=== PATIENT | female | born 1950 | race Caucasian/White ===

== ENCOUNTER 2020-07-10 14:37 | Inpatient (IN) | payer MEDICARE, OTHER, SELFPAY ==
[2020-07-10] VITALS (7 sets, daily range): BP systolic 113–149; BP diastolic 54–69; PULSE 77–92; RESP 17–22; TEMP 37.6–37.7; O2SAT 91–93; BMI 37.5
--- NOTE | 2020-07-10 15:16 | ECG_ITS ---
Test Reason : SYNCOPE Blood Pressure : / mmHG Vent. Rate : 082 BPM Atrial Rate : 082 BPM P-R Int : 162 ms QRS Dur : 076 ms QT Int : 388 ms P-R-T Axes : 065 051 031 degrees QTc Int : 453 ms Normal sinus rhythm Nonspecific ST abnormality Abnormal ECG No previous ECGs available Referred By: Caty Escalante Electronically Signed By:TAHIRA CHRISTIAN MD
--- NOTE | 2020-07-10 15:16 | CT_ITS ---
EXAMINATION: CT CHEST, ABDOMEN AND PELVIS WITH IV CONTRAST CLINICAL INFORMATION: Syncope. Abdominal pain. Reduced appetite. COMPARISON: None TECHNIQUE: Axial images through the chest, abdomen and pelvis without IV or oral contrast. Sagittal and coronal reconstructions on the technologist workstation were performed. Patient dose 257+7 0 9 mg/cm. This CT examination was performed using dose optimization techniques as appropriate, variously including the following: *Automated exposure control *Adjustment of mA and/or kV according to patient size (this includes techniques or standardized protocols for targeted exams where dose is matched to indication/reason for exam; i.e. extremities or head) *Use of iterative reconstruction technique FINDINGS: Chest: There are scattered small areas of peripheral groundglass attenuation seen throughout the lungs. Appearance is nonspecific however. Covid infection should be considered. Largest areas measure approximately 1 cm. There is a 5 mm peripheral or subpleural left lower lobe nodule adjacent to the fissure axial image 248 series 7 probably representing a subpleural lymph node. There is shotty mediastinal lymphadenopathy. The heart does not appear enlarged. There is coronary artery and mitral annular calcification. There is no pericardial effusion. The thoracic aorta is normal in caliber. The visualized thyroid gland is unremarkable. There is no pleural effusion or pleural thickening. No chest wall mass or enlarged axillary lymph nodes are seen. Abdomen and pelvis: The liver is unremarkable. There is a gallstone in the gallbladder. There is no biliary duct dilatation. The spleen is unremarkable. The pancreas is unremarkable. The adrenal glands and kidneys are unremarkable. The bladder is unremarkable. There is mild diverticulosis of the colon. Small and large bowel is otherwise unremarkable. The appendix is not identified. The stomach is unremarkable. No hernia is seen. The uterus appears to have been removed. No pelvic mass is seen. There is no ascites or adenopathy. There is evidence of atherosclerotic disease. There are degenerative changes of the spine and hip joints. CT/CT abdomen pelvis wo con IMPRESSION: Chest: Nonspecific small peripheral infiltrates. Covid infection should be considered. Coronary artery calcification. Abdomen and pelvis: Mild diverticulosis of the colon. Gallstone. No CT evidence of cholecystitis.
--- NOTE | 2020-07-10 15:33 | ED.SYNCOPE ---
HPI - Syncope General Chief Complaint: Syncope Stated Complaint: syncope Time Seen by Provider: 07/10/20 15:03 History of Present Illness HPI narrative: A 70-year-old female with a past medical history of SD 20 years ago, high cholesterol, angina and HTN who presents with a syncopal episode just prior to arrival while waiting for a COVID test. She states for the past week or two she has not been feeling herself. She has said diarrhea, on and off fevers last week with a T-max of 100 degrees. She has also had a reduced appetite. Her daughter took her to get a COVID test this morning and she passed out with no warning, she denies feeling dizzy or lightheaded prior to losing consciousness. She says she did not hit her head. She had a similar episode 2 days ago when she was sitting on the toilet, her daughter called her and she was not responding. Apparently her daughter found her slumped over against the wall and still sitting on the toilet. She was arousable, she did not hit her head or actually fall. She states this morning the only thing she ate was 2 bites of a pancake due to her reduced appetite. Her granddaughter's boyfriend has COVID. She states she has been taking all of her medications as usual has no new medications. She does follow with dog raiser every 6 months since her SD 20 years ago. She does not have any chest pain or shortness of breath, no upper respiratory symptoms or cough. Related Data Allergies Allergy/AdvReac Type Severity Reaction Status Date / Time No Known Allergies Allergy Verified 07/10/20 14:57 Review of Systems Review of Systems: Yes all other systems are reviewed and are negative [facility] Past Medical History Medical History Angina at rest High cholesterol HTN (hypertension) Myocardial infarct Surgical History Stented coronary artery Social History Social History Smoked in Last 30 Days: No Use of substances other than those prescribed or required for medical reasons: No Advance Directives: No Advance Directives Information Provided: No Physical Exam Vital Signs: Vital Signs: Last Vital Signs Temp 99.7 F 07/10/20 14:49 Pulse 77 07/10/20 17:52 Resp 18 07/10/20 17:52 BP 131/63 07/10/20 17:52 Pulse Ox 93 07/10/20 17:52 Body Mass Index 37.5 Const: General: cooperative, healthy appearing, comfortable, no acute distress and well developed Orientation/consciousness: patient oriented x3 Limitations: no limitations HENMT: Head: Yes normal to inspection, Yes normocephalic and Yes atraumatic Face and sinus: Yes normal facial exam Eyes: General: appearance normal, both eyes and all related structures Neck: Neck: Yes normal visual inspection, Yes full ROM and Yes supple Resp: Effort & Inspection: normal respiratory effort and able to speak in complete sentences Auscultation: clear to auscultation bilaterally Cardio: Rate: regular rate Rhythm: regular rhythm Heart sounds: normal S1 and S2 GI: Inspection: Yes normal to inspection Palpation (GI): Soft to palpation and Tenderness to palpation present (GI) (diffuse) Auscultation: abnormal bowel sounds and Hypoactive bowel sounds present Skin: General skin exam: no rashes or lesions noted Neuro: General: patient oriented x3 Extrem: General: Yes normal to inspection Psych: Appearance: grossly normal Speech and movement: Normal speech and movement present Thought process: Normal thought process present Insight: Good insight present (Psych) Judgement: Good judgement present (Psych) Course Course Course Narrative: 70-year-old female with a past medical history of SD with a stent 20 years ago, hypertension and angina presents with 2nd syncopal episode in 3 days. Patient has a contact with [employer] as well as GI symptoms so she was getting a COVID test when suddenly she fell over, she did not feel dizzy or lightheaded prior to passing out. Physical exam is relatively benign except for a tender abdomen, patient's VSS except for O2 sat of 93%. Will scan patient's lungs, abdomen, typical labs, orthostatics, an EKG and a COVID test. 4:45pm patient has HARLEY likely secondary to dehydration. will get BNP prior to giving IVF. CT of lungs suggested of COVID, CT of abdomen negative for any acute issues. Still waiting on EKG, rapid COVID test, UA and BNP. 6pm sign out to Gordy Anthony PA-C MDM - Syncope Differential Diagnosis Differential diagnosis: Likely syncope due to orthostatic hypotension, vasovagal syncope and dehydration Lab Data Result diagrams: 07/10/20 15:41 07/10/20 15:41 Labs: Lab Results 07/10/20 07/10/20 07/10/20 Range/Units 15:41 15:41 15:41 WBC 10.0 (4.8-10.8) X10*3/uL RBC 4.38 (4.20-5.50) X10*6/uL Hgb 13.8 (12.0-16.0) g/dl Hct 41.2 (37-47) % MCV 94.1 (80-98) fL MCH 31.5 (27.0-33.0) pg MCHC 33.5 (31.0-35.0) g/dl RDW 12.5 (11.0-16.0) % Plt Count 288 (160-400) X10*3/uL MPV 9.7 (9.4-12.3) fL Immature Gran % (Auto) 0.3 (0.0-0.4) % Neut % (Auto) 75.4 H (45-73) % Lymph % (Auto) 9.9 L (20-40) % [place] % (Auto) 14.0 H (2-11) % Eos % (Auto) 0.0 (0-4) % Baso % (Auto) 0.4 (0-2) % Lymph # (Auto) 1.0 L (1.2-4.9) X10*3/uL [place] # (Auto) 1.4 H (0.1-1.2) X10*3/uL Eos # (Auto) 0.0 (0.0-0.4) X10*3/uL Baso # (Auto) 0.0 (0.0-0.2) X10*3/uL Abs Immat Gran (auto) 0.03 (0.00-0.03) X10*3/uL Absolute Neuts (auto) 7.6 (2.0-8.3) X10*3/uL Absolute Nucleated RBC 0.000 (0.0-0.012) X10*3/uL Nucleated RBC % (auto) 0.0 (0.0-0.2) /100WBC Hold Blue Top SEE NOTE Sodium 139 (135-145) mmol/L Potassium 4.0 (3.3-5.1) mmol/l Chloride 96 (96-108) mmol/L Carbon Dioxide 27 (22-29) mmol/L Anion Gap 20 (12-20) BUN 44 H (9-16) mg/dL Creatinine 2.21 H (0.5-1.4) mg/dL Estim Creat Clear Calc 22.9 Estimated GFR 22 Random Glucose 155 H (60-115) mg/dL Calcium 8.4 (8.4-10.2) mg/dL Troponin I High Sens (<3.5-17.0) ng/L B-Natriuretic Peptide (<100) pg/mL 07/10/20 Range/Units 15:41 WBC (4.8-10.8) X10*3/uL RBC (4.20-5.50) X10*6/uL Hgb (12.0-16.0) g/dl Hct (37-47) % MCV (80-98) fL MCH (27.0-33.0) pg MCHC (31.0-35.0) g/dl RDW (11.0-16.0) % Plt Count (160-400) X10*3/uL MPV (9.4-12.3) fL Immature Gran % (Auto) (0.0-0.4) % Neut % (Auto) (45-73) % Lymph % (Auto) (20-40) % [place] % (Auto) (2-11) % Eos % (Auto) (0-4) % Baso % (Auto) (0-2) % Lymph # (Auto) (1.2-4.9) X10*3/uL [place] # (Auto) (0.1-1.2) X10*3/uL Eos # (Auto) (0.0-0.4) X10*3/uL Baso # (Auto) (0.0-0.2) X10*3/uL Abs Immat Gran (auto) (0.00-0.03) X10*3/uL Absolute Neuts (auto) (2.0-8.3) X10*3/uL Absolute Nucleated RBC (0.0-0.012) X10*3/uL Nucleated RBC % (auto) (0.0-0.2) /100WBC Hold Blue Top Sodium (135-145) mmol/L Potassium (3.3-5.1) mmol/l Chloride (96-108) mmol/L Carbon Dioxide (22-29) mmol/L Anion Gap (12-20) BUN (9-16) mg/dL Creatinine (0.5-1.4) mg/dL Estim Creat Clear Calc Estimated GFR Random Glucose (60-115) mg/dL Calcium (8.4-10.2) mg/dL Troponin I High Sens 16.2 (<3.5-17.0) ng/L B-Natriuretic Peptide 56 (<100) pg/mL Imaging Data CT of Chest and Abdomen: Attestation: I personally reviewed and interpreted this imaging study as follows: Radiologist's impression: [address] [address] [address] Scan Report Signed Patient: Stefan Oliver#: [id number] : 9Acct:[id number] Age/Sex: 70 / FADM Date: 07/10/20 Loc: HO.ED Attending Dr: Ordering Physician: CRESENCIO MARTIN Date of Service: 07/10/20 Procedure(s): CT chest wo con Accession Number(s): [id number] cc: CRESENCIO MARTIN~ EXAMINATION: CT CHEST, ABDOMEN AND PELVIS WITH IV CONTRAST CLINICAL INFORMATION: Syncope. Abdominal pain. Reduced appetite. COMPARISON: None TECHNIQUE: Axial images through the chest, abdomen and pelvis without IV or oral contrast. Sagittal and coronal reconstructions on the technologist workstation were performed. Patient dose 257+7 0 9 mg/cm. This CT examination was performed using dose optimization techniques as appropriate, variously including the following: *Automated exposure control *Adjustment of mA and/or kV according to patient size (this includes techniques or standardized protocols for targeted exams where dose is matched to indication/reason for exam; i.e. extremities or head) *Use of iterative reconstruction technique FINDINGS: Chest: There are scattered small areas of peripheral groundglass attenuation seen throughout the lungs. Appearance is nonspecific however. Covid infection should be considered. Largest areas measure approximately 1 cm. There is a 5 mm peripheral or subpleural left lower lobe nodule adjacent to the fissure axial image 248 series 7 probably representing a subpleural lymph node. There is shotty mediastinal lymphadenopathy. The heart does not appear enlarged. There is coronary artery and mitral annular calcification. There is no pericardial effusion. The thoracic aorta is normal in caliber. The visualized thyroid gland is unremarkable. There is no pleural effusion or pleural thickening. No chest wall mass or enlarged axillary lymph nodes are seen. Abdomen and pelvis: The liver is unremarkable. There is a gallstone in the gallbladder. There is no biliary duct dilatation. The spleen is unremarkable. The pancreas is unremarkable. The adrenal glands and kidneys are unremarkable. The bladder is unremarkable. There is mild diverticulosis of the colon. Small and large bowel is otherwise unremarkable. The appendix is not identified. The stomach is unremarkable. No hernia is seen. The uterus appears to have been removed. No pelvic mass is seen. There is no ascites or adenopathy. There is evidence of atherosclerotic disease. There are degenerative changes of the spine and hip joints. CT/CT chest wo con IMPRESSION: Chest: Nonspecific small peripheral infiltrates. Covid infection should be considered. Coronary artery calcification. Abdomen and pelvis: Mild diverticulosis of the colon. Gallstone. No CT evidence of cholecystitis. Dictated By:LORNE OLSON MD Signed By:<Electronically signed by LORNE OLSON MD in OV>07/10/20 1614 ECG Data Attestation: I personally reviewed and interpreted this ECG as follows: ECG interpretation date: 07/10/20 ECG interpretation time: 17:24 Prior ECG tracings: not available for review Interpretation: NSR at [address] no [address] abnormalities no QT prolongation
[2020-07-10 16:01] LABS: MANUAL DIFF FLAG NO
[2020-07-10 16:03] LABS: Basophils Percent Auto 0.4 % (0-2); Hematocrit 41.2 % (37-47); Hemoglobin 13.8 g/dl (12.0-16.0); Imm Gran Abs Auto 0.03 X10*3/uL (0.00-0.03); Imm Gran Pct Auto 0.3 % (0.0-0.4); Lymphocytes Percent Auto 9.9 % (20-40); Mean Corpuscular HGB Conc 33.5 g/dl (31.0-35.0); Mean Corpuscular Hemoglobin 31.5 pg (27.0-33.0); Mean Corpuscular Volume 94.1 fL (80-98); Mean Platelet Volume 9.7 fL (9.4-12.3); Monocytes Absolute Auto 1.4 X10*3/uL (0.1-1.2); Neutrophils Absolute Auto 7.6 X10*3/uL (2.0-8.3); Neutrophils Percent Auto 75.4 % (45-73); Platelet Count 288 X10*3/uL (160-400); Red Blood Count 4.38 X10*6/uL (4.20-5.50); Red Cell Distribution Width 12.5 % (11.0-16.0)
[2020-07-10 16:24] LABS: Anion Gap 20 (12-20); Blood Urea Nitrogen 44 mg/dL (9-16); Calcium 8.4 mg/dL (8.4-10.2); Carbon Dioxide 27 mmol/L (22-29); Chloride 96 mmol/L (96-108); Creatinine Clr Calc Pharmacy 22.9; Estimated Glomerular Filt Rate 22; Glucose Random 155 mg/dL (60-115); Sodium 139 mmol/L (135-145)
[2020-07-10 16:29] LABS: Troponin-I High Sensitivity 16.2 ng/L (<3.5-17.0)
[2020-07-10] MEDS: 0.9 % Sodium Chloride 1,000 ML 999 ML IVCONT (16:46)
[2020-07-10 17:38] LABS: B Type Natriuretic Peptide 56 pg/mL (<100)
[2020-07-10 18:09] LABS: COVID-19 Test Positive (Negative); IDNOW Serial# 9DD0AD1C
--- NOTE | 2020-07-10 19:49 | PC.NURSE ---
PT RESTING IN STRETCHER AWAITING PENDING ADMISSION. PT DENIES ANY COMPLAINTS AT THIS TIME. PT ALERT, RESPIRATIONS EASY, N/L. SKIN W/D. WILL CONTINUE TO MONITOR PT.
[2020-07-10 20:39] LABS: Troponin-I High Sensitivity 13.9 ng/L (<3.5-17.0)
[2020-07-11] VITALS (12 sets, daily range): BP systolic 124–158; BP diastolic 59–81; PULSE 75–90; RESP 14–19; TEMP 36.6–37.2; O2SAT 88–98
--- NOTE | 2020-07-11 00:09 | PC.NURSE ---
pt moved over from room 4, pt aware she needs to provide a urine. awaiting admission at this time.
[2020-07-11 01:57] LABS: Glucose Urine UA NEG (NEG); Leukocyte Esterase Urine NEG (NEG); Nitrite Urine NEG (NEG); Urine Blood NEG (NEG); Urine Ketones NEG (NEG); Urine Protein NEG (NEG-TRACE)
[2020-07-11 01:59] LABS: Appearance Urine CLEAR; Color Urine YELLOW
[2020-07-11 02:06] LABS: Bacteria Urine 1+ /LPF; RBC Urine 0 /HPF (0); Squamous Epithelial Cell Urine TRACE /LPF
--- NOTE | 2020-07-11 03:09 | PM.IMHP ---
History of Present Illness Date of Service: 07/11/20 Chief Complaint: Syncope 70 year old woman presented after syncopal event while in line to get tested for COVID. She had a known contact in her granddaughter's boyfriend who was positive so she was getting tested. Stated was in line leaning up against a wall and then stood up and sat down again and then passed out. No prodrome of chest pain, dyspnea, diaphoresis, palpitations. She noted no fevers/chills. No productive cough but occasionally has had a dry cough during the interview. No appetite for several days as she has had nausea and had episodes of diarrhea. Review of Systems Constitutional: Constitutional: Reports as per HPI ENT: Comments: dry mouth Cardiovascular: Cardiovascular: Reports as per HPI and Reports syncope Respiratory: Respiratory: Reports as per HPI Gastrointestinal: Gastrointestinal: Reports as per HPI Musculoskeletal: Musculoskeletal: Reports no additional musculoskeletal complaints Neurologic: Reports syncope Psychiatric: Comments: Not anxious or agitated Hematologic/Lymphatic: Comments: No bruising [facility] Medical History Angina at rest High cholesterol HTN (hypertension) Myocardial infarct Family history: reviewed and not pertinent Surgical History (Updated 07/11/20 @ 03:14 by Oliverio Anthony MD) H/O: hysterectomy Stented coronary artery Social History Smoked in Last 30 Days: No Use of substances other than those prescribed or required for medical reasons: No Advance Directives: No Advance Directives Information Provided: No Meds Allergies Allergy/AdvReac Type Severity Reaction Status Date / Time No Known Allergies Allergy Verified 07/10/20 14:57 Home Medications Medication Instructions Recorded Confirmed Type atorvastatin 40 mg PO DAILY 07/10/20 07/10/20 History carvedilol 12.5 mg PO BID 07/10/20 07/10/20 History ezetimibe 10 mg PO DAILY 07/10/20 07/10/20 History hydrochlorothiazide 12.5 mg PO DAILY 07/10/20 07/10/20 History isosorbide mononitrate [Imdur] 30 mg PO DAILY 07/10/20 07/10/20 History losartan 50 mg PO DAILY 07/10/20 07/10/20 History nitroglycerin 0.4 mg SUBLINGUAL Q5M PRN 07/10/20 07/10/20 History aspirin 81 mg PO DAILY 07/11/20 07/11/20 History Physical Exam Vital Signs and Narrative: Vital Signs: Last Vital Signs Temp 99.8 F 07/10/20 20:08 Pulse 80 07/10/20 20:08 Resp 22 H 07/10/20 20:08 BP 149/69 H 07/10/20 20:08 Pulse Ox 91 L 07/10/20 20:08 Body Mass Index 37.5 Const: General: cooperative, healthy appearing, comfortable and no acute distress Orientation/consciousness: oriented to person, oriented to place and oriented to time HENMT: Head: Yes normal to inspection Mouth: Normal oral and palatal mucosa present Eyes: Conjunctivae: conjunctivae normal Sclerae: sclerae normal Neck: Other: Supple, no lymphadenopathy Chest: Chest palpation & inspection: normal inspection of the chest Resp: Other: No insp crackles or exp wheezes Effort & Inspection: normal respiratory effort and able to speak in complete sentences Cardio: Rate: regular rate Rhythm: regular rhythm Heart sounds: S1 normal heart sound present and S2 normal heart sound present GI: Other: Nontender, nondistended, bowel sounds normal Inspection: Yes normal to inspection Skin: General skin exam: no rashes or lesions noted Neuro: General: oriented to person, oriented to place and oriented to time Extrem: Other: No leg edema General: Yes normal to inspection Psych: Other: Not anxious or agitated Results Labs CBC and Chem 7: 07/10/20 15:41 07/10/20 15:41 Labs: Laboratory Results - last 24 hr 07/10/20 07/10/20 07/10/20 15:41 15:41 15:41 MCV 94.1 MCH 31.5 MCHC 33.5 RDW 12.5 Plt Count 288 MPV 9.7 Immature Gran % (Auto) 0.3 Neut % (Auto) 75.4 H Lymph % (Auto) 9.9 L [place] % (Auto) 14.0 H Eos % (Auto) 0.0 Baso % (Auto) 0.4 Lymph # (Auto) 1.0 L [place] # (Auto) 1.4 H Eos # (Auto) 0.0 Baso # (Auto) 0.0 Abs Immat Gran (auto) 0.03 Absolute Neuts (auto) 7.6 Absolute Nucleated RBC 0.000 Nucleated RBC % (auto) 0.0 Hold Blue Top SEE NOTE Anion Gap 20 Estim Creat Clear Calc 22.9 Estimated GFR 22 Random Glucose 155 H Calcium 8.4 Troponin I High Sens B-Natriuretic Peptide Urine Color Urine Appearance Urine pH Ur Specific [place] Urine Protein Urine Glucose (UA) Urine Ketones Urine Blood Urine Nitrite Ur Leukocyte Esterase Urine RBC Urine WBC Ur Squamous Epith Cells Urine Bacteria Hyaline Casts COVID-19 (DEENA) COVID-19 Clin Com 07/10/20 07/10/20 07/10/20 15:41 16:42 20:03 MCV MCH MCHC RDW Plt Count MPV Immature Gran % (Auto) Neut % (Auto) Lymph % (Auto) [place] % (Auto) Eos % (Auto) Baso % (Auto) Lymph # (Auto) [place] # (Auto) Eos # (Auto) Baso # (Auto) Abs Immat Gran (auto) Absolute Neuts (auto) Absolute Nucleated RBC Nucleated RBC % (auto) Hold Blue Top Anion Gap Estim Creat Clear Calc Estimated GFR Random Glucose Calcium Troponin I High Sens 16.2 13.9 B-Natriuretic Peptide 56 Urine Color Urine Appearance Urine pH Ur Specific [place] Urine Protein Urine Glucose (UA) Urine Ketones Urine Blood Urine Nitrite Ur Leukocyte Esterase Urine RBC Urine WBC Ur Squamous Epith Cells Urine Bacteria Hyaline Casts COVID-19 (DEENA) Positive A COVID-19 [employer] Com See Note 07/11/20 01:46 MCV MCH MCHC RDW Plt Count MPV Immature Gran % (Auto) Neut % (Auto) Lymph % (Auto) [place] % (Auto) Eos % (Auto) Baso % (Auto) Lymph # (Auto) [place] # (Auto) Eos # (Auto) Baso # (Auto) Abs Immat Gran (auto) Absolute Neuts (auto) Absolute Nucleated RBC Nucleated RBC % (auto) Hold Blue Top Anion Gap Estim Creat Clear Calc Estimated GFR Random Glucose Calcium Troponin I High Sens B-Natriuretic Peptide Urine Color YELLOW Urine Appearance CLEAR Urine pH 6.0 Ur Specific [place] 1.020 Urine Protein NEG Urine Glucose (UA) NEG Urine Ketones NEG Urine Blood NEG Urine Nitrite NEG Ur Leukocyte Esterase NEG Urine RBC 0 Urine WBC 1-4 Ur Squamous Epith Cells TRACE Urine Bacteria 1+ Hyaline Casts 1-4 COVID-19 (DEENA) COVID-19 Clin Com Imaging Radiologist's Impressions: Impressions Abdomen/Pelvis CT 07/10/20 15:16 IMPRESSION: Chest: Nonspecific small peripheral infiltrates. Covid infection should be considered. Coronary artery calcification. Abdomen and pelvis: Mild diverticulosis of the colon. Gallstone. No CT evidence of cholecystitis. Chest CT 07/10/20 15:16 IMPRESSION: Chest: Nonspecific small peripheral infiltrates. Covid infection should be considered. Coronary artery calcification. Abdomen and pelvis: Mild diverticulosis of the colon. Gallstone. No CT evidence of cholecystitis. Assessment and Plan (1) Syncope: Qualifiers: Syncope type: unspecified Qualified Code(s): R55 - Syncope and collapse Status: Acute (2) COVID-19: Status: Acute 70 year old woman presenting after syncopal event. Noted to have COVID and was mildly hypoxemic with room air sats as low as 91% Syncope She admits having diarrhea and poor PO intake for last several days, which could have been her COVID symptoms. As such may be dehydration and vasovagal event. Will monitor on telemetry and check orthostatics after hydration. Hold HCTZ acutely in light of her elevated creatinine/HARLEY, which further supports notion of dehydration. COVID She is hypoxic on room air so will use Dexamethazone 6mg daily and ID consult placed for Remdesivir. Suppotive care. CAD No chest pain reported. Continue aspirin, Imdur, Atorvastatin, Zetia. HTN Continue Coreg, Losartan. DVT proph SC Lovenox orderd Code status Full code.
[2020-07-11] MEDS: Enoxaparin Sodium 40 MG/0.4 ML SYRINGE SUBCUT (03:33)
[2020-07-11] MEDS: dexAMETHasone 4 MG TABLET 6 MG PO (03:33)
[2020-07-11] MEDS: 0.9 % Sodium Chloride 1,000 ML 100 ML IVCONT ×2 (04:53→15:15)
--- NOTE | 2020-07-11 07:30 | PC.NURSE ---
pt rang to use the bathroom, pt assisted to the commode pt reports feeling better then earlier today, denies pain, and feeling sob, pt on 2l of oxygen sating at 96%, ls slightly diminished in all bases, ns on the monitor. breakfast see provided. pt awaiting room assignment
[2020-07-11] MEDS: Losartan Potassium 50 MG TABLET PO (08:12)
[2020-07-11] MEDS: Ezetimibe 10 MG TABLET PO (08:12)
[2020-07-11] MEDS: Isosorbide Mononitrate 30 MG TAB.ER.24H PO (08:13)
[2020-07-11] MEDS: Atorvastatin Calcium 40 MG TABLET PO (08:13)
[2020-07-11] MEDS: carvediloL 12.5 MG TABLET PO ×2 (08:13→21:50)
[2020-07-11] MEDS: Aspirin 81 MG TAB.CHEW PO (08:14)
--- NOTE | 2020-07-11 09:57 | PC.NURSE ---
hospitalist at bedside doing rounds
--- NOTE | 2020-07-11 10:23 | PC.NURSE ---
per dr diaz verbal order pt taken off the 2l nasal cannual, pt dropped down to 88% on room air, pt put back on the 2l nasal cannual, dr diaz aware
--- NOTE | 2020-07-11 14:15 | PC.NURSE ---
PT FINISHED EATING LUNCH ATE ABOUT 90% OF HER LUNCH. VS STABLE IN NO APPARENT DISTRESS AT THIS TIME
[2020-07-11] MEDS: 0.9 % Sodium Chloride Flush 3 ML SYRINGE IVFLUSH ×2 (15:17→21:50)
--- NOTE | 2020-07-11 16:22 | P.EN_ITS ---
Event Note Date of Service: 07/12/20 Event Note: Patient was admitted early in the morning and seen by hospitalist team Patient says does not feel shows significant short of breath but her saturation drops in 88% RA. Patient had diarrhea which resolved Syncope was very brief? Physical exam: Cvs: rrr, [id number] , no murmur res: clear to auscultation ,no rhonchii or wheezing abd: no rebound or guarding ,nt, bs present. ext pulses present , no cyanosis neuro: axo3 , nonfocal. Assessment and plan: Coordinated in H&P note Probable COVID infection Since patient has hypoxemic respiratory failure, she does not know how long ago she was exposed as per her are her granddaughter 's and started feeling sick last week,? But she was saying that he used to come during the [place] time also so unclear origin of symptoms. Patient says that she is feeling sick from 1 week her symptom started with poor oral intake from 7-Jun. Will continue oxygen, dexamethasone, consult ID for question if needed remdesivir.
[2020-07-11 17:56] LABS: Alanine Aminotransferase 32 U/L (0-31); Albumin Level 3.5 g/dL (3.5-5.0); Alkaline Phosphatase 56 U/L (39-117); Anion Gap 15 (12-20); Aspartate Amino Transferase 30 U/L (5-31); Bilirubin Direct 0.3 mg/dL (0.0-0.5); Bilirubin Total 0.4 mg/dL (0.0-1.0); Blood Urea Nitrogen 39 mg/dL (9-16); Calcium 7.8 mg/dL (8.4-10.2); Carbon Dioxide 27 mmol/L (22-29); Chloride 103 mmol/L (96-108); Creatinine Clr Calc Pharmacy 36.4; Estimated Glomerular Filt Rate 37; Glucose Random 328 mg/dL (60-115); Potassium 3.5 mmol/l (3.3-5.1); Sodium 141 mmol/L (135-145); Total Protein 6.8 g/dL (6.5-8.0)
--- NOTE | 2020-07-11 18:27 | PC.NURSE ---
pt set up with jamin cui, in no apparent distress at this time. pt continuos to wait room assignment
--- NOTE | 2020-07-11 23:25 | PC.NURSE ---
report given to CARMEN Lucero. Pt to floor in w/c at this time. Pt left ED in NAD.
[2020-07-12] VITALS (8 sets, daily range): BP systolic 137–173; BP diastolic 65–87; PULSE 69–82; RESP 13–24; TEMP 36.4–36.9; O2SAT 94–97
[2020-07-12] MEDS: Enoxaparin Sodium 40 MG/0.4 ML SYRINGE SUBCUT (02:21)
[2020-07-12 06:43] LABS: Basophils Percent Auto 0.1 % (0-2); Hematocrit 38.5 % (37-47); Hemoglobin 12.8 g/dl (12.0-16.0); Imm Gran Abs Auto 0.03 X10*3/uL (0.00-0.03); Imm Gran Pct Auto 0.4 % (0.0-0.4); Lymphocytes Absolute Auto 0.9 X10*3/uL (1.2-4.9); Lymphocytes Percent Auto 11.2 % (20-40); MANUAL DIFF FLAG SCAN; Mean Corpuscular HGB Conc 33.2 g/dl (31.0-35.0); Mean Corpuscular Hemoglobin 31.8 pg (27.0-33.0); Mean Corpuscular Volume 95.5 fL (80-98); Mean Platelet Volume 9.5 fL (9.4-12.3); Monocytes Absolute Auto 0.9 X10*3/uL (0.1-1.2); Neutrophils Percent Auto 77.3 % (45-73); Platelet Count 347 X10*3/uL (160-400); Red Blood Count 4.03 X10*6/uL (4.20-5.50); Red Cell Distribution Width 12.4 % (11.0-16.0); SCAN SMEAR FLAG 1; White Blood Count 7.8 X10*3/uL (4.8-10.8)
[2020-07-12 07:06] LABS: SLIDE REVIEW VERIFIED
[2020-07-12 07:26] LABS: Anion Gap 14 (12-20); Blood Urea Nitrogen 33 mg/dL (9-16); Calcium 8.1 mg/dL (8.4-10.2); Carbon Dioxide 24 mmol/L (22-29); Chloride 109 mmol/L (96-108); Creatinine Clr Calc Pharmacy 50.6; Estimated Glomerular Filt Rate 55; Glucose Random 150 mg/dL (60-115); Potassium 3.5 mmol/l (3.3-5.1); Sodium 143 mmol/L (135-145)
--- NOTE | 2020-07-12 08:49 | MHC.CM.PN ---
pt lives c her in their home. she reports that she is independent in her care. her is able to help her should she need it. this will include a ride home at dc. pt denies the need for vna at dc. dc plan at this time is home no svcs. cm to cont. to follow.
[2020-07-12] MEDS: carvediloL 12.5 MG TABLET PO ×2 (08:51→19:38)
[2020-07-12] MEDS: Aspirin 81 MG TAB.CHEW PO (08:51)
[2020-07-12] MEDS: Atorvastatin Calcium 40 MG TABLET PO (08:52)
[2020-07-12] MEDS: Ezetimibe 10 MG TABLET PO (08:52)
[2020-07-12] MEDS: 0.9 % Sodium Chloride 1,000 ML 100 ML IVCONT ×2 (08:52)
[2020-07-12] MEDS: Isosorbide Mononitrate 30 MG TAB.ER.24H PO (08:52)
[2020-07-12] MEDS: dexAMETHasone sod phosphate 4 MG/ML VIAL 6 MG IVPUSH (11:17)
[2020-07-12 11:39] LABS: Estimated Average Glucose 148 mg/dL; Hemoglobin A1c % 6.8 %
[2020-07-12 11:40] LABS: Alanine Aminotransferase 34 U/L (0-31); Albumin Level 3.4 g/dL (3.5-5.0); Alkaline Phosphatase 56 U/L (39-117); Aspartate Amino Transferase 28 U/L (5-31); Bilirubin Direct 0.3 mg/dL (0.0-0.5); Bilirubin Total 0.4 mg/dL (0.0-1.0); Total Protein 6.7 g/dL (6.5-8.0)
--- NOTE | 2020-07-12 12:17 | HO.PM.IMPN ---
Subjective Subjective Date of Service: 07/13/20 Interval History: Generalized weak but slowly improving, shortness of breath vargas says also improving Review of Systems Denies any chest pain or abdominal pain or nausea or vomiting or diarrhea or fever or chills. Physical Exam Vital Signs: Vital Signs: Last Vital Signs Temp 97.8 F 07/12/20 08:00 Pulse 75 07/12/20 08:52 Resp 16 07/12/20 08:00 BP 173/85 H 07/12/20 08:52 Pulse Ox 97 07/12/20 02:59 Body Mass Index 37.5 Physical exam: Constitutional: Not in acute distress. Physical exam: Cvs: [id number], [id number] , no murmur res: Fair air entry, no rales or wheezing abd: no rebound or guarding ,nt, bs present. ext pulses present , no cyanosis neuro: axo3 , nonfocal. Objective Data Current Medications Generic Name Dose Route Start Last Admin Trade Name Freq PRN Reason Stop Dose Admin Acetaminophen 650 mg 07/11/20 03:04 Acetaminophen 325 Mg Tablet PO Q6H PRN Fever >100.4 Aspirin 81 mg 07/11/20 09:00 07/12/20 08:51 Aspirin 81 Mg Tab.Chew PO 81 mg DAILY STANLEY Administration Atorvastatin Calcium 40 mg 07/11/20 09:00 07/12/20 08:52 Atorvastatin Calcium 40 Mg Tablet PO 40 mg DAILY STANLEY Administration Carvedilol 12.5 mg 07/11/20 09:00 07/12/20 08:51 Carvedilol 12.5 Mg Tablet PO 12.5 mg BID STANLEY Administration Protocol Dexamethasone Sodium Phosphate 6 mg 07/12/20 11:00 07/12/20 11:17 Dexamethasone Sod Phosphate 4 Mg/Ml Vial IVPUSH 6 mg DAILY STANLEY Administration Ezetimibe 10 mg 07/11/20 09:00 07/12/20 08:52 Ezetimibe 10 Mg Tablet PO 10 mg DAILY STANLEY Administration Enoxaparin Sodium 40 mg 07/11/20 03:04 07/12/20 02:21 Enoxaparin Sodium 40 Mg/0.4 Ml Syringe SUBCUT 40 mg Q24H STANLEY Administration Isosorbide Mononitrate 30 mg 07/11/20 09:00 07/12/20 08:52 Isosorbide Mononitrate 30 Mg Tab.Er.24h PO 30 mg DAILY STANLEY Administration Protocol Pharmacy Consult 1 each 07/10/20 19:51 Consult Rx Perform Med Rec MISCELLANE ONCE PRN Consult order Sodium Chloride 3 ml 07/11/20 08:00 07/12/20 08:51 0.9 % Sodium Chloride Flush 3 Ml Syringe IVFLUSH Not Given QSHIFT [facility] Labs CBC & Chem 7: 07/12/20 06:29 07/13/20 06:14 Assessment and Plan (1) Syncope: Status: Acute (2) COVID-19: Problem details: She has been ill for about 10 days She is on 1 liter oxygen She has been feeling better Status: Acute Assessment and Plan: 70 year old woman presenting after syncopal event. Noted to have COVID and was mildly hypoxemic with room air sats as low as 91% 1.Syncope: Thought to be related to dehydration. Improved with hydration Will check orthostasis Hydrochlorothiazide on hold because of dehydration and HARLEY. 2.HARLEY: Seems improved with hydration/holding hydrochlorothiazide., diarrhea improved. 3.COVID: sob seems improving slowly She is hypoxic on room air so will use Dexamethazone 6mg daily and ID consult eval pending for Remdesivir. Suppotive care. 4.CAD:No chest pain reported. Continue aspirin, Imdur, Atorvastatin, Zetia. 5.HTN:Continue Coreg, Losartan. DVT proph SC Lovenox
--- NOTE | 2020-07-12 15:01 | PC.NURSE ---
Patient had an 8-beat of V-tach. Dr. Cormier made aware and notified. Patient heart rate at 68 and asymptomatic, no further concerns at this time.
[2020-07-12] MEDS: Potassium Chloride Packet 20 MEQ PACKET 40 MEQ PO (15:05)
[2020-07-12] MEDS: 0.9 % Sodium Chloride Flush 3 ML SYRINGE IVFLUSH ×2 (15:06→19:39)
[2020-07-12 15:25] LABS: Magnesium 1.8 mg/dL (1.6-2.6)
[2020-07-13] VITALS (12 sets, daily range): BP systolic 148–183; BP diastolic 75–92; PULSE 55–81; RESP 15–19; TEMP 36.6–37.1; O2SAT 95–99; BMI 37.5
[2020-07-13] MEDS: Enoxaparin Sodium 40 MG/0.4 ML SYRINGE SUBCUT (03:03)
[2020-07-13 07:02] LABS: Anion Gap 14 (12-20); Blood Urea Nitrogen 29 mg/dL (9-16); Calcium 8.3 mg/dL (8.4-10.2); Carbon Dioxide 25 mmol/L (22-29); Chloride 107 mmol/L (96-108); Creatinine Clr Calc Pharmacy 57.5; Estimated Glomerular Filt Rate > 60; Glucose Random 175 mg/dL (60-115); Potassium 3.9 mmol/l (3.3-5.1); Sodium 142 mmol/L (135-145)
[2020-07-13] MEDS: Atorvastatin Calcium 40 MG TABLET PO (08:12)
[2020-07-13] MEDS: Isosorbide Mononitrate 30 MG TAB.ER.24H PO (08:12)
[2020-07-13] MEDS: Aspirin 81 MG TAB.CHEW PO (08:13)
[2020-07-13] MEDS: dexAMETHasone sod phosphate 4 MG/ML VIAL 6 MG IVPUSH (08:13)
[2020-07-13] MEDS: carvediloL 12.5 MG TABLET 18.75 MG PO ×2 (08:15→19:46)
[2020-07-13] MEDS: Ezetimibe 10 MG TABLET PO (08:16)
[2020-07-13] MEDS: 0.9 % Sodium Chloride Flush 3 ML SYRINGE IVFLUSH ×3 (08:16→19:46)
--- NOTE | 2020-07-13 12:42 | MHC.CM.NN ---
Review of EMR and discussion with MD: pt is being weaned off of O2 and is continuing COVID treatment: D/C plan is for a return to home with spouse - pt declining services at this time, however, CM will revisit prior to d/c to ensure no home needs
--- NOTE | 2020-07-13 14:38 | W.PM.IDCN ---
History of Present Illness Data of Consult Service Date: 07/13/20 Requesting physician: Sarika Cormier Primary Care Provider: Unknown Physician HPI Reason for consult: COVID She presents with syncopal episode while waiting in a line to get COVID test. She has felt fatigued and ill since 07/04 She has felt feverish as well She has exposure to persons with COVID Review of Systems Review of Systems: Yes all other systems are reviewed and are negative Cardiovascular: Cardiovascular: Reports syncope Neurologic: Reports syncope PMFSH Past Medical History Medical History Angina at rest High cholesterol HTN (hypertension) Myocardial infarct Family History Family History Mother Heart attack Family history: reviewed and not pertinent Surgical History Surgical History H/O: hysterectomy Stented coronary artery Social History Social History Household Members: Family Housing: Apartment Smoking Status: Never smoker service: No Current occupational status: retired [employer] Allergies Allergy/AdvReac Type Severity Reaction Status Date / Time No Known Allergies Allergy Verified 07/23/20 09:27 Home Medications Medication Instructions Recorded Confirmed Type atorvastatin 40 mg PO DAILY 07/10/20 07/23/20 History carvedilol 12.5 mg PO BID 07/10/20 07/23/20 History ezetimibe 10 mg PO DAILY 07/10/20 07/23/20 History hydrochlorothiazide 12.5 mg PO DAILY 07/10/20 07/23/20 History isosorbide mononitrate 30 mg PO DAILY 07/10/20 07/23/20 History losartan 50 mg PO DAILY 07/10/20 07/23/20 History nitroglycerin 0.4 mg SUBLINGUAL Q5M PRN 07/10/20 07/23/20 History aspirin 81 mg PO DAILY 07/11/20 07/23/20 History cholecalciferol (vitamin D3) 25 25 mcg PO DAILY 07/23/20 07/23/20 History mcg (1,000 unit) capsule Physical Exam Vital Signs: Vital Signs: Last Vital Signs Temp 97.9 F 07/13/20 11:08 Pulse 69 07/13/20 11:08 Resp 16 07/13/20 11:08 BP 163/77 H 07/13/20 11:08 Pulse Ox 98 07/13/20 11:08 Body Mass Index 37.5 Const: General: cooperative HENMT: Head: Yes normal to inspection Mouth: Normal oral and palatal mucosa present Eyes: General: appearance normal, both eyes and all related structures Resp: Effort & Inspection: normal respiratory effort Cardio: Rate: regular rate Rhythm: regular rhythm GI: Palpation (GI): Soft to palpation and nontender : General: Yes no CVA tenderness Back/Spine/Pelvis: Back: no CVA tenderness Skin: General skin exam: no rashes or lesions noted Assessment and Plan (1) COVID-19: Status: Acute No Remdesivir due to duration symptoms over 10 days May use steroids (2) Syncope: Qualifiers: Syncope type: unspecified Qualified Code(s): R55 - Syncope and collapse Status: Acute (3) Hypomagnesemia: Status: Acute Results Labs CBC & Chem 7: 07/12/20 06:29 07/14/20 07:28 Labs: BMP 07/13/20 06:14 Sodium 142 Potassium 3.9 Chloride 107 Carbon Dioxide 25 BUN 29 H Creatinine 0.88 Calcium 8.3 L
--- NOTE | 2020-07-13 15:22 | HO.PM.IMPN ---
Subjective Subjective Date of Service: 07/13/20 Interval History: covid infection Review of Systems Shortness of breath slowly improving, denies any chest pain or abdominal pain or fever or chills Physical Exam Vital Signs: Vital Signs: Last Vital Signs Temp 97.9 F 07/13/20 11:08 Pulse 69 07/13/20 11:08 Resp 16 07/13/20 11:08 BP 163/77 H 07/13/20 11:08 Pulse Ox 98 07/13/20 11:08 Body Mass Index 37.5 Physical exam: Cvs: [id number], [id number] , no murmur res: fair air entry , no rales or wheezing abd: no rebound or guarding ,nt, bs present. ext pulses present , no cyanosis neuro: axo3 , nonfocal. Objective Data Current Medications Generic Name Dose Route Start Last Admin Trade Name Freq PRN Reason Stop Dose Admin Acetaminophen 650 mg 07/11/20 03:04 Acetaminophen 325 Mg Tablet PO Q6H PRN Fever >100.4 Aspirin 81 mg 07/11/20 09:00 07/13/20 08:13 Aspirin 81 Mg Tab.Chew PO 81 mg DAILY STANLEY Administration Atorvastatin Calcium 40 mg 07/11/20 09:00 07/13/20 08:12 Atorvastatin Calcium 40 Mg Tablet PO 40 mg DAILY STANLEY Administration Carvedilol 18.75 mg 07/13/20 09:00 07/13/20 08:13 Carvedilol 12.5 Mg Tablet PO 12.5 mg BID STANLEY Administration Protocol Dexamethasone Sodium Phosphate 6 mg 07/12/20 11:00 07/13/20 08:13 Dexamethasone Sod Phosphate 4 Mg/Ml Vial IVPUSH 6 mg DAILY STANLEY Administration Ezetimibe 10 mg 07/11/20 09:00 07/13/20 08:16 Ezetimibe 10 Mg Tablet PO 10 mg DAILY STANLEY Administration Enoxaparin Sodium 40 mg 07/11/20 03:04 07/13/20 03:03 Enoxaparin Sodium 40 Mg/0.4 Ml Syringe SUBCUT 40 mg Q24H STANLEY Administration Isosorbide Mononitrate 30 mg 07/11/20 09:00 07/13/20 08:12 Isosorbide Mononitrate 30 Mg Tab.Er.24h PO 30 mg DAILY STANLEY Administration Protocol Pharmacy Consult 1 each 07/10/20 19:51 Consult Rx Perform Med Rec MISCELLANE ONCE PRN Consult order Sodium Chloride 3 ml 07/11/20 08:00 07/13/20 08:16 0.9 % Sodium Chloride Flush 3 Ml Syringe IVFLUSH 3 ml QSHIFT [facility] Administration Labs CBC & Chem 7: 07/12/20 06:29 07/13/20 06:14 Assessment and Plan (1) COVID-19: Problem details: She has been ill for about 10 days She is on 1 liter oxygen She has been feeling better Status: Acute (2) Syncope: Status: Acute Assessment and Plan: 70 year old woman presenting after syncopal event. Noted to have COVID and was mildly hypoxemic with room air sats as low as 91% 1.Syncope: Thought to be related to dehydration. Improved with hydration Will check orthostasis Hydrochlorothiazide on hold because of dehydration and HARLEY. 2.HARLEY: Seems improved with hydration/holding hydrochlorothiazide., diarrhea improved. 3.COVID: sob seems improving slowly She is hypoxic Dexamethazone 6mg daily, taper down oxygen ID consult eval pending if needs Remdesivir. Suppotive care. 4.CAD:No chest pain reported. Continue aspirin, Imdur, Atorvastatin, Zetia. 5.HTN:Continue Coreg, Losartan. DVT proph SC Lovenox
[2020-07-13 16:09] LABS: Magnesium 1.4 mg/dL (1.6-2.6)
[2020-07-13] MEDS: Magnesium Sulfate/H2O 2 GM/50 ML PIGGYBACK IV (17:38)
[2020-07-13] MEDS: Magnesium Oxide 400 MG TABLET PO (17:39)
[2020-07-14] MEDS: Enoxaparin Sodium 40 MG/0.4 ML SYRINGE SUBCUT (02:16)
[2020-07-14 03:19] VITALS: BP 180/84; PULSE 78; RESP 14; TEMP 36.6; O2SAT 97
[2020-07-14 06:20] VITALS: BP 169/87
[2020-07-14 07:45] VITALS: BP 184/84; PULSE 60; RESP 12; TEMP 36.4; O2SAT 95
[2020-07-14 08:03] LABS: Anion Gap 14 (12-20); Blood Urea Nitrogen 22 mg/dL (9-16); Calcium 8.4 mg/dL (8.4-10.2); Carbon Dioxide 27 mmol/L (22-29); Chloride 106 mmol/L (96-108); Creatinine Clr Calc Pharmacy 67.4; Estimated Glomerular Filt Rate > 60; Glucose Random 139 mg/dL (60-115); Potassium 3.8 mmol/l (3.3-5.1); Sodium 143 mmol/L (135-145)
[2020-07-14 08:46] LABS: Alanine Aminotransferase 37 U/L (0-31); Albumin Level 3.2 g/dL (3.5-5.0); Alkaline Phosphatase 51 U/L (39-117); Aspartate Amino Transferase 23 U/L (5-31); Bilirubin Direct 0.3 mg/dL (0.0-0.5); Bilirubin Total 0.4 mg/dL (0.0-1.0); Magnesium 1.7 mg/dL (1.6-2.6); Total Protein 6.2 g/dL (6.5-8.0)
[2020-07-14 09:02] VITALS: BP 184/84; PULSE 74; PULSE 76
[2020-07-14] MEDS: Atorvastatin Calcium 40 MG TABLET PO (09:02)
[2020-07-14] MEDS: Isosorbide Mononitrate 30 MG TAB.ER.24H PO (09:02)
[2020-07-14] MEDS: Ezetimibe 10 MG TABLET PO (09:02)
[2020-07-14] MEDS: dexAMETHasone sod phosphate 4 MG/ML VIAL 6 MG IVPUSH (09:02)
[2020-07-14] MEDS: Aspirin 81 MG TAB.CHEW PO (09:02)
[2020-07-14] MEDS: carvediloL 12.5 MG TABLET 18.75 MG PO (09:02)
[2020-07-14] MEDS: 0.9 % Sodium Chloride Flush 3 ML SYRINGE IVFLUSH (09:03)
[2020-07-14] MEDS: Magnesium Oxide 400 MG TABLET PO (09:26)
[2020-07-14 11:27] VITALS: BP 141/69; PULSE 67; RESP 20; TEMP 36.4; O2SAT 95
[2020-07-14] MEDS: hydroCHLOROthiazide 12.5 MG TABLET PO (11:30)
--- NOTE | 2020-07-14 12:01 | MHC.CM.PN ---
Pt will d/c to home today without services. She has a new pt appointment with Loan Machuca on 127 at 9 am at the [facility]. Call placed to her spouse Camden to update him on plan: Pt is aware and in agreement. Camden will arrive to transport pt to home when nursing has completed the d/c and education. Updated [facility] hospitalist via [employer] on pt's new MD and appt.
[2020-07-14] MEDS: Potassium Chloride Packet 20 MEQ PACKET PO (12:06)
--- NOTE | 2020-07-14 13:06 | PM.DS ---
DS: Providers Provider Date of Service: 07/14/20 Date of admission: 07/11/20 03:04 Primary care physician: Unknown Physician Consults: 07/11/20 03:04 Consult to Infectious Diseases Routine Consulting Provider: Heaven Fletcher Reason for consultation: COVID, pls evaluate for Remdesivir therapy Has provider been notified: No DS: Diagnosis Discharge Diagnosis (1) COVID-19: Status: Acute Problem details: She has been ill for about 10 days She is on 1 liter oxygen She has been feeling better (2) Syncope: Status: Acute DS: Medications Discharge Medications Home Medications: Home Medications Medication Instructions Recorded Confirmed atorvastatin 40 mg PO DAILY 07/10/20 07/10/20 carvedilol 12.5 mg PO BID 07/10/20 07/10/20 ezetimibe 10 mg PO DAILY 07/10/20 07/10/20 hydrochlorothiazide 12.5 mg PO DAILY 07/10/20 07/10/20 isosorbide mononitrate 30 mg PO DAILY 07/10/20 07/10/20 losartan 50 mg PO DAILY 07/10/20 07/10/20 nitroglycerin 0.4 mg SUBLINGUAL Q5M PRN 07/10/20 07/10/20 aspirin 81 mg PO DAILY 07/11/20 07/11/20 Previous Rx's Medication Instructions Recorded dexamethasone 6 mg PO DAILY #7 tab 07/14/20 magnesium oxide 400 mg PO BIDPC #10 tab 07/14/20 DS: Summary Hospital Course Hospital Course: 70 year old woman presented after syncopal event while in line to get tested for COVID. She had a known contact in her granddaughter's boyfriend who was positive so she was getting tested. Stated was in line leaning up against a wall and then stood up and sat down again and then passed out. No prodrome of chest pain, dyspnea, diaphoresis, palpitations. She noted no fevers/chills. No productive cough but occasionally has had a dry cough during the interview. No appetite for several days as she has had nausea and had episodes of diarrhea. Hospital course: Patient was initially admitted due to acute hypoxemic respiratory failure secondary to COVID infection, probable syncope, HARLEY. Patient was started on fluids as well as dexamethasone and subsequently patient improved significantly, Seen by infectious disease due to late but in addition not a candidate for remdesivir. HARLEY improved to baseline with hydration. Syncope was thought to be secondary to dehydration/vasovagal-with hydration and COVID management-no new symptoms, further syncopal workup outpatient with PCP. Patient shortness of breath improved and not requiring any oxygen saturating 90% on room air. Going home with p.o. dexamethasone. Further management outpatient as per PCP and Cardiology. Had mild hypoglycemia which is repleted and resolved. Will give limited supply of magnesium. 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 Time Spent with Patient Time attestation: Total time spent providing and/or coordinating discharge services: Discharge coordination time: Greater than 30 minutes Physical Exam Vital Signs: Vital Signs: Last Vital Signs Temp 97.6 F 07/14/20 11:27 Pulse 67 07/14/20 11:27 Resp 20 07/14/20 11:27 BP 141/69 H 07/14/20 11:27 Pulse Ox 95 07/14/20 11:27 Body Mass Index 37.5 Physical exam: Constitutional: Not in acute distress HEENT: Neck supple Eyes: No erythema, no discharge. Cvs: rrr, [id number] , no murmur res: clear to auscultation ,no rhonchii or wheezing abd: no rebound or guarding ,nt, bs present. ext pulses present , no cyanosis neuro: axo3 , nonfocal. DS: Data Data Completed and Pending Labs on day of discharge: Laboratory Tests 07/10/20 07/10/20 07/10/20 15:41 15:41 15:41 WBC 10.0 RBC 4.38 Hgb 13.8 Hct 41.2 MCV 94.1 MCH 31.5 MCHC 33.5 RDW 12.5 Plt Count 288 MPV 9.7 Immature Gran % (Auto) 0.3 Neut % (Auto) 75.4 H Lymph % (Auto) 9.9 L Anson % (Auto) 14.0 H Eos % (Auto) 0.0 Baso % (Auto) 0.4 Lymph # (Auto) 1.0 L Anson # (Auto) 1.4 H Eos # (Auto) 0.0 Baso # (Auto) 0.0 Abs Immat Gran (auto) 0.03 Absolute Neuts (auto) 7.6 Absolute Nucleated RBC 0.000 Nucleated RBC % (auto) 0.0 Smear Tech's Comments Hold Blue Top SEE NOTE Sodium 139 Potassium 4.0 Chloride 96 Carbon Dioxide 27 Anion Gap 20 BUN 44 H Creatinine 2.21 H Estim Creat Clear Calc 22.9 Estimated GFR 22 Random Glucose 155 H Estimat Average Glucose Hemoglobin A1c % Calcium 8.4 Magnesium Total Bilirubin Direct Bilirubin AST ALT Alkaline Phosphatase Troponin I High Sens B-Natriuretic Peptide Total Protein Albumin Urine Color Urine Appearance Urine pH Ur Specific [place] Urine Protein Urine Glucose (UA) Urine Ketones Urine Blood Urine Nitrite Ur Leukocyte Esterase Urine RBC Urine WBC Ur Squamous Epith Cells Urine Bacteria Hyaline Casts COVID-19 (DEENA) COVID-19 Revert 07/10/20 07/10/20 07/10/20 15:41 16:42 20:03 WBC RBC Hgb Hct MCV MCH MCHC RDW Plt Count MPV Immature Gran % (Auto) Neut % (Auto) Lymph % (Auto) Anson % (Auto) Eos % (Auto) Baso % (Auto) Lymph # (Auto) Anson # (Auto) Eos # (Auto) Baso # (Auto) Abs Immat Gran (auto) Absolute Neuts (auto) Absolute Nucleated RBC Nucleated RBC % (auto) Smear Tech's Comments Hold Blue Top Sodium Potassium Chloride Carbon Dioxide Anion Gap BUN Creatinine Estim Creat Clear Calc Estimated GFR Random Glucose Estimat Average Glucose Hemoglobin A1c % Calcium Magnesium Total Bilirubin Direct Bilirubin AST ALT Alkaline Phosphatase Troponin I High Sens 16.2 13.9 B-Natriuretic Peptide 56 Total Protein Albumin Urine Color Urine Appearance Urine pH Ur Specific [place] Urine Protein Urine Glucose (UA) Urine Ketones Urine Blood Urine Nitrite Ur Leukocyte Esterase Urine RBC Urine WBC Ur Squamous Epith Cells Urine Bacteria Hyaline Casts COVID-19 (DEENA) Positive A COVID-19 Revert See Note 07/11/20 07/11/20 07/12/20 01:46 17:09 06:29 WBC 7.8 RBC 4.03 L Hgb 12.8 Hct 38.5 MCV 95.5 MCH 31.8 MCHC 33.2 RDW 12.4 Plt Count 347 MPV 9.5 Immature Gran % (Auto) 0.4 Neut % (Auto) 77.3 H Lymph % (Auto) 11.2 L Anson % (Auto) 11.0 Eos % (Auto) 0.0 Baso % (Auto) 0.1 Lymph # (Auto) 0.9 L Anson # (Auto) 0.9 Eos # (Auto) 0.0 Baso # (Auto) 0.0 Abs Immat Gran (auto) 0.03 Absolute Neuts (auto) 6.0 Absolute Nucleated RBC 0.000 Nucleated RBC % (auto) 0.0 Smear Tech's Comments VERIFIED Hold Blue Top Sodium 141 Potassium 3.5 Chloride 103 Carbon Dioxide 27 Anion Gap 15 BUN 39 H Creatinine 1.39 Estim Creat Clear Calc 36.4 Estimated GFR 37 Random Glucose 328 H D Estimat Average Glucose Hemoglobin A1c % Calcium 7.8 L D Magnesium Total Bilirubin 0.4 Direct Bilirubin 0.3 AST 30 ALT 32 H Alkaline Phosphatase 56 Troponin I High Sens B-Natriuretic Peptide Total Protein 6.8 Albumin 3.5 Urine Color YELLOW Urine Appearance CLEAR Urine pH 6.0 Ur Specific [place] 1.020 Urine Protein NEG Urine Glucose (UA) NEG Urine Ketones NEG Urine Blood NEG Urine Nitrite NEG Ur Leukocyte Esterase NEG Urine RBC 0 Urine WBC 1-4 Ur Squamous Epith Cells TRACE Urine Bacteria 1+ Hyaline Casts 1-4 COVID-19 (DENEA) COVID-19 Clin Com 07/12/20 07/12/20 07/12/20 06:29 06:29 06:29 WBC RBC Hgb Hct MCV MCH MCHC RDW Plt Count MPV Immature Gran % (Auto) Neut % (Auto) Lymph % (Auto) Anson % (Auto) Eos % (Auto) Baso % (Auto) Lymph # (Auto) Anson # (Auto) Eos # (Auto) Baso # (Auto) Abs Immat Gran (auto) Absolute Neuts (auto) Absolute Nucleated RBC Nucleated RBC % (auto) Smear Tech's Comments Hold Blue Top Sodium Cancelled 143 Potassium Cancelled 3.5 Chloride Cancelled 109 H Carbon Dioxide Cancelled 24 Anion Gap Cancelled 14 BUN Cancelled 33 H Creatinine Cancelled 1.00 Estim Creat Clear Calc Cancelled 50.6 Estimated GFR Cancelled 55 Random Glucose Cancelled 150 H D Estimat Average Glucose 148 Hemoglobin A1c % 6.8 Calcium Cancelled 8.1 L Magnesium 1.8 Total Bilirubin 0.4 Direct Bilirubin 0.3 AST 28 ALT 34 H Alkaline Phosphatase 56 Troponin I High Sens B-Natriuretic Peptide Total Protein 6.7 Albumin 3.4 L Urine Color Urine Appearance Urine pH Ur Specific [place] Urine Protein Urine Glucose (UA) Urine Ketones Urine Blood Urine Nitrite Ur Leukocyte Esterase Urine RBC Urine WBC Ur Squamous Epith Cells Urine Bacteria Hyaline Casts COVID-19 (DEENA) COVID-19 Clin Com 07/13/20 07/14/20 06:14 07:28 WBC RBC Hgb Hct MCV MCH MCHC RDW Plt Count MPV Immature Gran % (Auto) Neut % (Auto) Lymph % (Auto) Anson % (Auto) Eos % (Auto) Baso % (Auto) Lymph # (Auto) Anson # (Auto) Eos # (Auto) Baso # (Auto) Abs Immat Gran (auto) Absolute Neuts (auto) Absolute Nucleated RBC Nucleated RBC % (auto) Smear Tech's Comments Hold Blue Top Sodium 142 143 Potassium 3.9 3.8 Chloride 107 106 Carbon Dioxide 25 27 Anion Gap 14 14 BUN 29 H 22 H Creatinine 0.88 0.75 Estim Creat Clear Calc 57.5 67.4 Estimated GFR > 60 > 60 Random Glucose 175 H 139 H Estimat Average Glucose Hemoglobin A1c % Calcium 8.3 L 8.4 Magnesium 1.4 L* 1.7 Total Bilirubin 0.4 Direct Bilirubin 0.3 AST 23 ALT 37 H Alkaline Phosphatase 51 Troponin I High Sens B-Natriuretic Peptide Total Protein 6.2 L Albumin 3.2 L Urine Color Urine Appearance Urine pH Ur Specific [place] Urine Protein Urine Glucose (UA) Urine Ketones Urine Blood Urine Nitrite Ur Leukocyte Esterase Urine RBC Urine WBC Ur Squamous Epith Cells Urine Bacteria Hyaline Casts COVID-19 (DEENA) COVID-19 Clin Com Discharge Plan Discharge Patient Disposition: Home, Self-Care Referrals: Physician,Unknown [Primary Care Provider] - Loan Machuca NP [Nurse Practitioner] - 07/22/20 9:00 am (New patient appointment July 22 9:00 AM.) Discharge Medications: New magnesium oxide 400 mg (241.3 mg magnesium) Tablet 400 mg PO BIDPC Qty: 10 RF: 0 dexamethasone 6 mg tablet 6 mg PO DAILY Qty: 7 RF: 0 Continued losartan 50 mg Tablet 50 mg PO DAILY RF: 0 atorvastatin 40 mg Tablet 40 mg PO DAILY RF: 0 carvedilol 12.5 mg Tablet 12.5 mg PO BID RF: 0 isosorbide mononitrate 30 mg Tablet Extended Release 24 Hr 30 mg PO DAILY RF: 0 nitroglycerin 0.4 mg Tablet, Sublingual 0.4 mg SUBLINGUAL Q5M PRN (Reason: Chest Pain) RF: 0 ezetimibe 10 mg Tablet 10 mg PO DAILY RF: 0 hydrochlorothiazide 12.5 mg Tablet 12.5 mg PO DAILY RF: 0 aspirin 81 mg Tablet 81 mg PO DAILY RF: 0 Discharge Orders: Discharge Order (Routine); Ordered 07/14/20 Ordered By: Sarika Cormier Diet: advance to usual diet Activity on Discharge: As tolerated Other Ambulatory Orders: Basic Metabolic Panel (Routine) Timeframe: 1 Week Facility: [facility] - Location: Laboratory Ordered By: Sarika Cormier Magnesium (Routine) Timeframe: 1 Week Facility: [facility] - Location: Laboratory Ordered By: Sarika Cormier Visit Report Forms: Patient Portal Discharge page Care Plan Goals: PATIENT CAME WITH COVID PNEUMONIA AND HARLEY: Patient was started on fluids as well as dexamethasone and subsequently patient improved significantly, Seen by infectious disease due to late but in addition not a candidate for remdesivir. HARLEY improved to baseline with hydration. Patient shortness of breath improved and not requiring any oxygen saturating 90% on room air. Going home with p.o. dexamethasone. Further management outpatient as per PCP and Cardiology. Had mild hypoglycemia which is repleted and resolved. Will give limited supply of magnesium. 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 Health Concerns: As above. Plan of Treatment: As above.
== END 2020-07-14 14:10 | disposition home or self-care (01) | DRG 178 ==
LOC: HO.ED 23:13 → HO.EDOVER 07-11 03:20 → HO.ISO 07-11 23:20
PROVIDERS: Internal Medicine; Physician Assistant; Physician Assistant Medical; Admitting Provider Internal Medicine; Emergency Provider Emergency Medicine; PCP Physician Assistant; Visit Provider Internal Medicine
DX: U07.1 COVID-19 (principal); N17.9 Acute kidney failure, unspecified; I25.2 Old myocardial infarction; I10 Essential (primary) hypertension; I25.10 Atherosclerotic heart disease of native coronary artery without angina pectoris; E86.0 Dehydration; Z79.84 Long term (current) use of oral hypoglycemic drugs; Z79.899 Other long term (current) drug therapy
CPT/HCPCS: 36415; 71250; 74176; 80048; 80076; 81001; 83036; 83735; 83880; 84484; 85025; 87635; 93005; 96360; 99285; J1100; J1650; J3475; J8540

== ENCOUNTER 2020-07-18 07:52 | Outpatient (REF) | payer MEDICARE, OTHER, SELFPAY ==
[2020-07-18 09:11] LABS: Anion Gap 16 (12-20); Blood Urea Nitrogen 20 mg/dL (9-16); Carbon Dioxide 25 mmol/L (22-29); Chloride 100 mmol/L (96-108); Estimated Glomerular Filt Rate > 60; Glucose Random 117 mg/dL (60-115); Magnesium 1.6 mg/dL (1.6-2.6); Potassium 4.5 mmol/l (3.3-5.1); Sodium 136 mmol/L (135-145)
== END 2020-07-18 07:53 | disposition home or self-care (01) ==
LOC: HO.LAB 07:52
PROVIDERS: PCP Hospitalist; Visit Provider Internal Medicine
DX: E83.42 Hypomagnesemia (principal)
CPT/HCPCS: 36415; 80048; 83735

== ENCOUNTER 2020-08-24 10:16 | Outpatient (REF) | payer MEDICARE, OTHER, SELFPAY | END 2020-08-24 10:17 | disposition home or self-care (01) | LOC: HO.LAB 10:16 | PROVIDERS: Visit Provider Hospitalist | DX: N39.0 Urinary tract infection, site not specified (principal); R35.0 Frequency of micturition | CPT/HCPCS: 87086; 87088; 87186 ==

== ENCOUNTER 2021-11-23 10:41 | Emergency (ER) | payer OTHER, SELFPAY ==
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
[2021-11-23 11:29] VITALS: BP 178/74; PULSE 87; RESP 18; TEMP 37.2; O2SAT 96; BMI 36.3
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
== END 2021-11-23 13:27 | disposition home or self-care (01) ==
PROVIDERS: Emergency Provider Emergency Medicine; PCP Hospitalist
DX: S20.211A Contusion of right front wall of thorax, initial encounter (principal); S80.11XA Contusion of right lower leg, initial encounter; V43.52XA Car driver injured in collision with other type car in traffic accident, initial encounter; M25.512 Pain in left shoulder; Y93.89 Activity, other specified; Y92.414 Local residential or business street as the place of occurrence of the external cause; Y99.8 Other external cause status
CPT/HCPCS: 71046; 99283

== ENCOUNTER 2023-03-10 11:31 | Outpatient (AMB) | payer MEDICARE, OTHER, SELFPAY ==
[2023-03-10 11:32] VITALS: BP 144/78; PULSE 70; RESP 12; TEMP 36.4; O2SAT 99; BMI 35.9
--- NOTE | 2023-03-10 11:32 | MHC.PC.OV ---
Vital Signs 03/10/23 11:32 Height 5 ft Weight 184 lb BMI 35.9 BP 144/78 H Blood Pressure Location Rt brachial Position Sitting Respiration 12 Pulse 70 Pulse Source Pulse Oximeter Temp 97.6 F Temp Source Temporal Artery Scan Pulse Oximetry (%) 99 Oxygen Delivery Method Room Air Intake Visit Reasons: Back Pain Intake Note: Patient states that her pain is in her lower back. Patient states that she recently has fallen by accidentally tripping over her dog. Patient states she landed on her hands and knees and since then her back has been hurting consistent. 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 Accompanied by: Self / Same As Patient Allergies No Known Allergies Allergy (Verified 03/10/23 12:18) Medication List - Last Reconciled 03/10/23 by Toby Wolfe CNP aspirin 81 mg PO DAILY atorvastatin 40 mg PO DAILY carvedilol 12.5 mg PO BID cholecalciferol (vitamin D3) 25 mcg PO DAILY ezetimibe 10 mg PO DAILY hydrochlorothiazide 12.5 mg PO DAILY isosorbide mononitrate ER 30 mg PO DAILY losartan 50 mg PO DAILY nitroglycerin 0.4 mg sublingual Q5M PRN Tobacco use date assessed: 03/10/23 Fall risk assessment: 2 + Falls in past year Last assessed Fall Risk: 03/10/23 Dental Screening Dental Screen Date: 03/10/23 Did you have a dental visit in the last 12 months?: No Did you have a dental problem in the last 6 months where you did not have access to dental care?: No Was dental information given to patient?: Yes HPI HPI Comments History of Present Illness Details 73-year-old female presents with complaints of intermittent lower back pain. She notes the pain is usually localized to her entire lower back and has been ongoing for the past 2 months. Tylenol and Ibuprofen provides minimal relief. She denies falling on her back. No tingling, numbness, or loss of sensation. No symptoms at this time. [facility] Medical History HTN (hypertension) High cholesterol Myocardial infarct Angina at rest Surgical History H/O: hysterectomy Stented coronary artery Family History Mother Heart attack Social History Household Members: Family Housing: Apartment Do you presently have visiting nurse or other home services: No Patient Tobacco Use Status: Never used Tobacco e-Cigarette/Vaping Use: Never Used service: No Current occupational status: retired Cognitive needs: No Hearing needs: No Vision needs: No Review of Systems Const Details: Const Denies chills, Denies fatigue, Denies fever(s), Denies headache(s) and Denies weakness ENT Denies dizziness and Denies headache(s) Card Denies chest pain, Denies lightheadedness, Denies dyspnea and Denies other (Palpitations) Resp Denies cough, Denies dyspnea, Denies wheezing and Denies other ( shortness of breath) GI Denies abdominal pain, Denies melena, Denies hematochezia, Denies change in bowel habits, Denies dyspepsia and Denies nausea Denies hematuria and Denies dysuria Musc Denies abnormal gait, Denies myalgias, Denies arthralgias, Denies numbness and Denies tingling Skin/Breast Denies rash, Denies unusual bruising and Denies wounds Neuro Denies abnormal gait, Denies dizziness, Denies headache(s), Denies memory loss, Denies numbness, Denies Sensory deficit (Neuro), Denies tingling and Denies weakness Psych Denies anxiety, Denies depression, Denies memory loss Endo Denies cold intolerance, Denies fatigue, Denies heat intolerance, Denies polydipsia and Denies polyuria Aller/Immun Denies wheezing Physical exam (Primary Care) Vital Signs: Last Vital Signs Temp 97.6 F 03/10/23 11:32 Pulse 70 03/10/23 11:32 Resp 12 03/10/23 11:32 BP 144/78 H 03/10/23 11:32 Pulse Ox 99 03/10/23 11:32 Oxygen Delivery Method Room Air 03/10/23 11:32 BMI result Body Mass Index 35.9 Tobacco/Smoking Status: Tobacco use Status Tobacco use date assessed 03/10/23 03/10/23 11:45 Patient Tobacco Use Status Never used Tobacco 03/10/23 11:45 e-Cigarette/Vaping Use Never Used 03/10/23 11:45 Const Other: General: no acute distress and well developed Nutritional Appearance: well nourished Orientation/consciousness: patient oriented x3 [facility] Head: Yes normocephalic and Yes atraumatic Eyes General: appearance normal, both eyes and all related structures Pupils: Equal, round and reactive pupils present EOM: EOMs intact bilaterally Resp Effort & Inspection: normal respiratory effort Auscultation: clear to auscultation bilaterally Cardio Rate: regular rate Rhythm: regular rhythm Heart sounds: S1 normal heart sound present, S2 normal heart sound present, no gallops, no murmurs and no rubs GI Palpation (GI): No Abdominal aortic bruit present, Soft to palpation, nontender, No hepatosplenomegaly present and No Rebound tenderness present Auscultation: normal bowel sounds General: Yes no CVA tenderness Back/Spine/Pelvis Back: no CVA tenderness Cervical Spine: cervical ROM normal and No Cervical spine tenderness Thoracic/Lumbar Spine: thoraco-lumbar ROM normal, No pain with thoraco-lumbar ROM, No thoracic spinal tenderness and No lumbar spinal tenderness Extrem General: Yes normal to inspection, No edema and No calf tenderness Skin General: warm and dry. Normal skin color. Normal skin turgor Lesions: no lesions Rashes: no rashes Trauma: no lacerations or abrasions Wounds: no wounds Nails: normal Neuro General: patient oriented x3, gait normal and no focal neuro deficit Cranial nerves: Yes Equal, round and reactive pupils present Cognition (Neuro): normal cognition Gait exam (Neuro): Normal gait present Sensory Exam: No Sensory deficit (Neuro) Psych Appearance: grossly normal Affect: normal affect Attitude: cooperative Thought process: Normal thought process present Assessment and Plan Assessment & Plan (1) Low back pain: Code(s): M54.50 - Low back pain, unspecified Qualifiers: Chronicity: acute Back pain laterality: bilateral Sciatica presence: without sciatica Qualified Code(s): M54.50 - Low back pain, unspecified Plan: Reports intermittent low back pain for the past 2 months, on related to fall, injury, or trauma Likely due to arthritis although degenerative disc disease is possible Naproxen ordered. Take as prescribed Warm/cold compresses encouraged Return with new or worsening symptoms. Would order PT Encouraged to follow-up with PCP soon for health maintenance Verbalized understanding and agreed with treatment plan. Medications: New naproxen 500 mg PO BID PRN 30 tabs 1RF pain Coding Level of Care Code Est Pt Level 2 (55177) Diagnoses Acute bilateral low back pain without sciatica M54.50 Chronicity: acute Back pain laterality: bilateral Sciatica presence: without sciatica
== END 2023-03-10 12:36 | disposition home or self-care (01) ==
PROVIDERS: PCP Hospitalist; Visit Provider Nurse Practitioner Family
DX: M54.50 Low back pain, unspecified (principal)
CPT/HCPCS: 99212